=== PATIENT | male | born 2000 | race Caucasian/White ===

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

== ENCOUNTER 2023-07-28 15:15 | Emergency (ER) | payer OTHER ==
[2023-07-28 15:32] VITALS: BP 140/80; O2SAT 99
--- NOTE | 2023-07-28 15:33 | ED Physician Documentation ---
PD HPI HEENT - Stated complaint Stated Complaint: BLOOD IN EARS - Chief complaint Chief Complaint: Heent - History obtained from History obtained from: Patient (While cleaning his ears today he noticed a small amount of blood on the Q-tips, also resolved left nosebleed. No significant pain.) PD PAST MEDICAL HISTORY - Past Medical History Past Medical History: No Cardiovascular: None Respiratory: None Neuro: None Endocrine/Autoimmune: None GI: None : None HEENT: None Psych: None Musculoskeletal: None Derm: None - Past Surgical History Past Surgical History: No - Present Medications Home Medications: Ambulatory Orders Medication Instructions Recorded Confirmed No Known Home Medications 08/31/15 08/31/15 - Allergies Allergies/Adverse Reactions: Allergies Allergy/AdvReac Type Severity Reaction Status Date / Time No Known Drug Allergies Allergy Verified 07/28/23 15:25 - Social History Does the pt smoke?: No Smoking Status: Never smoker Does the pt drink ETOH?: Yes Does the pt have substance abuse?: No Substance Use and Type: Marijuana - Immunizations Immunizations are current?: Yes PD ED PE NORMAL - Vitals Vital signs reviewed: Yes - General General: Alert and oriented X 3, No acute distress - HEENT HEENT: Other (Both TMs are normal, he has small abrasions of each ear canal, the posterior left in the anterior right. Visualized nasal mucosa is normal without any evidence of recent bleeding.) - Neuro Neuro: Alert and oriented X 3 Results - Vitals Vitals: Vital Signs - 24 hr 07/28/23 15:25 Temperature 36.5 C Heart Rate 70 Respiratory 16 Rate Blood Pressure 140/80 H O2 Saturation 99 Oxygen O2 Source Room air PD Medical Decision Making - ED course ED course: He has ear canal abrasions and resolved epistaxis. No otitis media or evidence of severe disease. Conservative care and return precautions were discussed. Departure - Departure Disposition: 01 Home, Self Care Clinical Impression: Ear canal abrasion Condition: Good Record reviewed to determine appropriate education?: Yes Comments: You have mild abrasions (scrapes) of both ear canals. I do not see any blood from your nose at this point. Try not to use Q-tips for a few days, you do not have any wax at this point anyway. Return if worse.
== END 2023-07-28 15:39 | disposition home or self-care (01) ==
LOC: ED 15:15
DX: S00.412A Abrasion of left ear, initial encounter (principal); S00.411A Abrasion of right ear, initial encounter; W44.8XXA Other foreign body entering into or through a natural orifice, initial encounter; Y93.E8 Activity, other personal hygiene
CPT/HCPCS: 99282; 99283